=== PATIENT | male | born 1990 | race Caucasian/White ===

== ENCOUNTER 2017-05-21 23:48 | Emergency (ER) | payer BC, MEDICAID ==
[~2017-05-21] VITALS: Ht 175.3 cm; Wt 63.5 kg
[2017-05-22] VITALS: BP 125/69
== END 2017-05-22 01:18 | disposition left against medical advice (07) ==
LOC: ER 23:50
DX: R51 Headache (principal); R42 Dizziness and giddiness; M54.2 Cervicalgia; Z53.21 Procedure and treatment not carried out due to patient leaving prior to being seen by health care provider
CPT/HCPCS: 70450; 72125; 72128; 72131

== ENCOUNTER 2020-03-05 12:45 | Emergency (ER) | payer MEDICAID, OTHER ==
[~2020-03-05] VITALS: Ht 172.7 cm; Wt 70.3 kg
[2020-03-05 12:54] VITALS: BP 128/74
[2020-03-05] MEDS ORDERED: KETOROLAC TROMETH 60MG/2ML VIAL IM ONE (14:00)
[2020-03-05] MEDS ORDERED: LIDOCAINE 2%HCL (LOCAL ANESTH.) INJ 20ML MDV ONE (15:05)
[2020-03-05] MEDS ORDERED: LIDOCAINE 2%HCL (LOCAL ANESTH.) INJ 10ml MDV IJ ONE (15:15)
== END 2020-03-05 15:45 | disposition home or self-care (01) ==
LOC: ER 12:45 → EDBD 12:45 → ER 15:45
DX: S46.912A Strain of unspecified muscle, fascia and tendon at shoulder and upper arm level, left arm, initial encounter (principal); S29.011A Strain of muscle and tendon of front wall of thorax, initial encounter; S01.111A Laceration without foreign body of right eyelid and periocular area, initial encounter; F17.210 Nicotine dependence, cigarettes, uncomplicated; V43.62XA Car passenger injured in collision with other type car in traffic accident, initial encounter; Y93.89 Activity, other specified; Y92.488 Other paved roadways as the place of occurrence of the external cause; Y99.8 Other external cause status
CPT/HCPCS: 12011; 71101; 73030; 96372; 99284; J1885; J2001